=== PATIENT | male | born 1965 | race Caucasian/White ===

== ENCOUNTER → 2019-09-20 08:38 | Outpatient (CLI) | payer OTHER | END | disposition home or self-care (01) | LOC: LAB 08:38 | PROVIDERS: ATTEND General Practice | DX: Z20.828 Contact with and (suspected) exposure to other viral communicable diseases (principal); Z11.59 Encounter for screening for other viral diseases ==

== ENCOUNTER 2019-12-13 17:15 | Outpatient (CLI) | payer OTHER | END 2019-12-13 17:21 | disposition home or self-care (01) | LOC: LAB 17:15 | DX: Z20.828 Contact with and (suspected) exposure to other viral communicable diseases (principal) ==

== ENCOUNTER → 2020-03-01 | Emergency (ER) | payer OTHER ==
[~2020-03-01] VITALS: Ht 177.8 cm; Wt 83.9 kg
== END | disposition left against medical advice (07) ==
LOC: ER 14:48
DX: Z53.20 Procedure and treatment not carried out because of patient's decision for unspecified reasons (principal)